=== PATIENT | female | born 1950 | race Hispanic/Latino ===

== ENCOUNTER 2016-10-21 08:14 | Day surgery (SDC) | payer MEDICARE, BC ==
[2016-10-13 14:30] VITALS: BMI 26.8
[2016-10-21] MEDS ORDERED: Propofol 10 mg/ml Inj (20 ML) ONE (10:02)
[2016-10-21 10:53] VITALS: RESP 16
[2016-10-21] MEDS ORDERED: Sodium Chloride 0.9% 1,000 ML IV SCH (11:00)
[2016-10-21 11:37] VITALS: BP 148/83; PULSE 85; TEMP 98.3; O2SAT 98
== END 2016-10-21 12:03 | disposition home or self-care (01) ==
LOC: ENDO 08:14
PROVIDERS: ATTEND Internal Medicine Gastroenterology
DX: D12.4 Benign neoplasm of descending colon (principal); K64.8 Other hemorrhoids; K63.89 Other specified diseases of intestine
CPT/HCPCS: 45381; 45385; 88305; J2704; J7040 ×2